=== PATIENT | male | born 1935 | race Caucasian/White ===

== ENCOUNTER 2022-12-13 13:35 | Outpatient (CLI) | payer MEDICARE, BC ==
[~2022-12-13 13:35] MED LIST: Iopamidol 300 61% 100 ML VIAL FS ONE
== END 2022-12-13 13:36 | disposition home or self-care (01) ==
LOC: CSHCT 13:35
PROVIDERS: ATTEND Family Medicine
DX: L03.115 Cellulitis of right lower limb (principal); M72.9 Fibroblastic disorder, unspecified; M60.9 Myositis, unspecified
CPT/HCPCS: 82565; Q9967